=== PATIENT | female | born 1990 | race Caucasian/White ===

== ENCOUNTER 2020-02-04 15:02 | Emergency (ER) | payer OTHER ==
[~2020-02-04] VITALS: Ht 162.6 cm; Wt 100.4 kg
[2020-02-04 15:03] VITALS: BP 130/89
[2020-02-04] MEDS ORDERED: NOXI1TAB PO (15:12)
[2020-02-04] MEDS ORDERED: IBUP-1022 PO (15:12)
== END 2020-02-04 16:11 | disposition home or self-care (01) ==
LOC: M ED 15:02
DX: M72.2 Plantar fascial fibromatosis (principal); T43.205A Adverse effect of unspecified antidepressants, initial encounter
CPT/HCPCS: 96372; 99283; G0463; J1885

== ENCOUNTER 2020-02-13 15:56 | Emergency (ER) | payer OTHER ==
[~2020-02-13] VITALS: Ht 162.6 cm; Wt 99.5 kg
[~2020-02-13 15:56] MED LIST: IBUP-1022 PO; NOXI1TAB PO
[2020-02-13] MEDS ORDERED: SERT25TA85 PO (16:07)
[2020-02-13] MEDS ORDERED: IBUP-1022 PO (16:54)
[2020-02-13] MEDS ORDERED: ACETAMINOPHEN 500 MG TAB PO ONE (17:45)
[2020-02-13] MEDS ORDERED: METOCLOPRAMIDE 10 MG TAB PO ONE (17:45)
--- NOTE | 2020-02-13 18:08 | REPVR ---
PROCEDURE INFORMATION: Exam: CT Head Without Contrast Exam date and time: 02/13/2020 5:47 PM Age: 30 years old Clinical indication: Injury or trauma; Injury history: Hit head; Initial encounter; Blunt trauma (contusions or hematomas); Additional info: Hit head, falling asleep, nausea TECHNIQUE: Imaging protocol: Computed tomography of the head without contrast. Radiation optimization: All CT scans at this facility use at least one of these dose optimization techniques: automated exposure control; mA and/or kV adjustment per patient size (includes targeted exams where dose is matched to clinical indication); or iterative reconstruction. COMPARISON: No relevant prior studies available. FINDINGS: Brain: No hemorrhage or edema seen. No significant white matter disease. 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 Ventricles: No ventriculomegaly. Bones/joints: Unremarkable. No acute fracture. Sinuses: Visualized sinuses are unremarkable. No fluid levels. Mastoid air cells: Visualized mastoid air cells are well aerated. Soft tissues: Unremarkable. IMPRESSION: No acute intracranial abnormality seen. Electronically signed by: Antonina Terrazas On 02/13/2020 18:08:28 PM
[2020-02-13 18:33] VITALS: BP 128/75
== END 2020-02-13 18:33 | disposition home or self-care (01) ==
LOC: M ED 15:56
DX: S06.0X0A Concussion without loss of consciousness, initial encounter (principal); W07.XXXA Fall from chair, initial encounter; Y92.89 Other specified places as the place of occurrence of the external cause; J45.909 Unspecified asthma, uncomplicated; K58.9 Irritable bowel syndrome, unspecified; Y93.89 Activity, other specified; Y99.8 Other external cause status